=== PATIENT | female | born 1950 | race Caucasian/White ===

== ENCOUNTER 2016-10-12 17:14 | Emergency (ER) | payer MEDICARE, OTHER ==
[2016-10-12] MEDS ORDERED: oxyCOD/ACETAMIN 5 MG/325 MG TABLET PO STA (17:48)
[2016-10-12] MEDS ORDERED: oxyCOD/ACETAMIN 5 MG/325 MG TABLET PO ONE (18:03)
[2016-10-12] MEDS ORDERED: oxyCODONE/ACET 5/325 Prepack 4 PO STA (20:21)
[2016-10-12] MEDS ORDERED: oxyCODONE/ACET 5/325 Prepack 4 PO ONE (20:24)
== END 2016-10-12 20:55 | disposition home or self-care (01) ==
DX: S42.212A Unspecified displaced fracture of surgical neck of left humerus, initial encounter for closed fracture (principal); S50.02XA Contusion of left elbow, initial encounter; S80.212A Abrasion, left knee, initial encounter; W01.0XXA Fall on same level from slipping, tripping and stumbling without subsequent striking against object, initial encounter; E11.9 Type 2 diabetes mellitus without complications; Z87.442 Personal history of urinary calculi; Z79.84 Long term (current) use of oral hypoglycemic drugs
CPT/HCPCS: 73060; 73080; 99283; A9270

== ENCOUNTER 2018-10-31 13:36 | Outpatient (CLI) | payer MEDICARE | END 2018-10-31 13:37 | disposition home or self-care (01) | LOC: DI 13:36 | PROVIDERS: ATTEND Internal Medicine | DX: R06.02 Shortness of breath (principal); I51.7 Cardiomegaly | CPT/HCPCS: 93306 ==

== ENCOUNTER 2019-05-13 11:58 | Outpatient (CLI) | payer MEDICARE ==
--- NOTE | 2019-05-13 13:30 | CONSULTATION NOTE ---
Palliative Care Consultation - Referral Referring Provider: Dr. Regino Pretty Time of Visit: 3959-7451 Referral setting: Home Referral Reason: Stage IV Colon Cancer with peritoneal carcinomatosis - Information Sources Records reviewed: Previous records reviewed History/Review of Systems obtained from: Patient, Family ( Dominic and Zina stepdaughter) Exam limitations: No limitations - History of Present Illness Brief History of Present Illness: This is a 68-year-old woman with stage IV colon cancer, with extensive peritoneal carcinomatosis. Her initial diagnosis was in January of this year. Patient had been feeling poorly for several months previously, with increased abdominal discomfort, nausea, she had been vomiting up clear liquid, and not food contents. She did have vague left abdominal pain. She did continue to develop more more distention, as she was having accumulating ascites. She has had a total of 4 paracentesis of fairly large volume, was last tapped in February. Of note she also had almost 2 years of diarrhea previous to diagnosis, and with firming of stool when received chemotherpy, some rectal pain, now resolved, known tumor at rectum. She was seen by gastroenterology, and referred for diagnostic/therapeutic paracentesis at that point in time the ascetic fluid confirmed malignant cells, and her CT scan of the abdomen pelvis also showed soft tissue implants and indeterminate hepatic and splenic lesions in her work up. She is due to have restaging scans this next month. Patient was started on FOLFOX and Avastin, she actually has tolerated it fairly well. She is having a good therapeutic response and well her CEA has decreased to 68. She is seeing Dr. Pretty, and receiving her treatments every 2 weeks with a plan for 12-15 treatments. She does have progressive fatigue and some increase in neuropathies. She did have a baseline some diabetic neuropathy in her feet, but most recently has developed neuropathies in her fingers. This does appear to be worsening, and of concern. Patient also has known concern for obstruction given the location of her tumor. She has been managing her bowels with MiraLAX and senna 2 tabs at bedtime. She has had some resolution of her nausea, use of the metoclopramide 5 mg up to 3 times a day, this is most often in conjunction w ith her therapy has not needed it on a regular basis. Her symptom burden includes anorexia, which she has been using CBD, with some improvement. She has had significant weight loss of about 80 pounds over the last 6 to 8 months. Patient's understanding of her disease, is she is "terminal", the goal is to manage her disease and extend her quantity as well as improve her quality of life. She does present with moderate symptom burden, she has good social support network, and willing and able to talk about her goals of care today. 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 Her has health challenges as well with his heart and pulmonary hypertension. Her stepdaughter Zina and her have moved in to help with her care, she is quite appreciative this. 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 Patient himself is from [place], she her who is in the , they moved from [place] to [place] and then to [facility] on snf. 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 She admits to being somewhat of an introvert, she likes to sit in a recliner, she finds ila in comfort and watching TV and reading. Family History - Family History Family History: Mother: (natural causes 76), Cancer (lung 63,), Father: , Brother: Alive and Well (brother with kidney cancer), CVA/TIA Family History Comment/Other: paternal grandfather with rectal cancer Medications/Allergies - Medications Home Medications: Ambulatory Orders Medication Instructions Recorded Confirmed Glipizide [Glipizide Xl] 1 tab PO DAILY PRN 10/12/16 05/13/19 metFORMIN [Glucophage] 1,000 mg PO BID 10/12/16 05/13/19 Fluticasone [Flonase] 1 sprays TONJA DAILY 04/07/19 05/13/19 Furosemide [Lasix] 20 mg PO BID 04/07/19 05/13/19 Gabapentin [Neurontin] 600 mg PO HS 04/07/19 05/13/19 Ipratropium [Atrovent] 2 sprays IN BID PRN MDD up to 4 04/07/19 05/13/19 times daily Ondansetron [Ondansetron Odt] 8 mg PO Q8HR PRN 04/07/19 05/13/19 Spironolactone 25 mg PO BID 04/07/19 05/13/19 Metoclopramide [Reglan] 5 mg PO TID PRN 04/21/19 05/13/19 Omeprazole 40 mg PO DAILY 04/21/19 05/13/19 Polyethylene Glycol 3350 [Miralax] 17 gm PO DAILY 05/13/19 05/13/19 Senna [Senokot] 2 tab PO ACHS 05/13/19 05/13/19 - Allergies Allergies/Adverse Reactions: Allergies Allergy/AdvReac Type Severity Reaction Status Date / Time No Known Drug Allergies Allergy Verified 05/05/19 09:49 Review of Systems - Constitutional Constitutional: reports: Fatigue, Weight loss (294 baseline now 219: 80 pound weight loss over the year). denies: Fever, Chills - Eyes Eyes: reports: Vision loss - Ears, Nose & Throat Ears, Nose & Throat: reports: Postnasal drainage (improved). denies: Mouth lesions - Cardiovascular Cardiovascular: reports: Decr. exercise tolerance. denies: Edema - Respiratory Respiratory: denies: SOB at rest - Gastrointestinal Gastrointestinal: reports: Abdominal distention, Poor appetite (using CBD with some improvement), Early satiety. denies: Abdominal pain, Constipation, Nausea, Vomiting, Reflux/heartburn - Genitourinary Genitourinary: denies: Incontinence - Musculoskeletal Musculoskeletal: reports: Muscle weakness - Integumentary Integumentary: reports: Dryness, Other (peeling of hands) - Neurological Neurological: reports: General weakness, Abnormal gait - Psychiatric Psychiatric: reports: Depression, Anxiety - Endocrine Endocrine: reports: Diabetes type 2 (uses her glipizide PRN, usually only needs on day of decadron), Intolerance to cold - Hematologic/Lymphatic Hematologic/Lymphatic: reports: Anemia (worsening; hgb 11.6) - All Other Systems All Other Systems: reports: Reviewed and negative Physical Exam - Vital Signs Temperature: 96.4 C Pulse Rate: 62 Respiratory Rate: 18 O2 Saturation: 96 (ra @ rest) Blood Pressure: 132/78 - Physical Exam General Appearance: positive: No acute distress, Alert Eyes Bilateral: positive: Normal inspection ENT: positive: No signs of dehydration. negative: Oral lesions Neck: positive: No JVD, Trachea midline Cardiovascular: positive: Regular rate & rhythm Respiratory: positive: Diminished in bases (right greater than left). negative: Wheezes, Rales, Rhonchi Abdomen: positive: Non-tender, Soft, Nml bowel sounds, Mass (palpaple tumor over mid upper abdominal area of carcinomatosis), Obese Skin: positive: Pallor, Dryness (peeling finger tips: slighly reddened) Extremities: positive: No pedal edema Neurologic/Psychiatric: positive: Oriented x3, Mood/affect nml (appropriately tearful), Weakness Palliative Care - POLST Patient has POLST: Yes POLST Status: DNR, Selective Treatment (completed at visit) Pain: Pain improved, Location (LUQ), Severity (2/10), Comment (patient with worsening peripheral neuropathy in feet, now in hands on gabapentin 600 mg at HS; and ibuprofen 800 mg at bedtime) Tiredness/Fatigue: Moderate (4-6) Drowsiness/Sedation: Moderate (4-6) Nausea: None Anorexia: None Dyspnea: None Depression: Mild (1-3) Anxiety: Mild (1-3) Feelings of wellbeing/Perceived Quality of Life: Fair, Improved Sleep: Sleeps well Constipation: No, Managed Performance Status: Patient's energy does fluctuate, she does report she is able to ambulate short distances most days. She does have a walker, she does have a wheelchair for times when she is too fatigued. She is attending to her ADLs, she does have assistance from her stepdaughter. She at baseline has always been quite deconditioned, with her weight loss of muscle mass, she is much weaker. She reports she often lists to the right. 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 Allowed patient to tell her story, she does have understanding her disease is terminal and her treatment palliative in nature. She is hoping for both quality and quantity of time, she has had improvement in her symptoms and is quite encouraged. She has tolerated her chemo fairly well, but is worried about the what next. As a family they have talked and discussed the POLST form, this was revisited, in the context of patient's goals. Patient at this point in time wants to focus on quality of life issues, would treat reversible conditions and continue with treatment at this point, and end-of-life she would like to have a at home. We discussed in the context of the POLST. She does want to be a DNA R, allow natural , and select treatments weighing benefits and burdens of treatment decisions as they come up. Her D ABRAHAN is her , with Zina in follow-up in her niece. I did obtain that document to scanned into medical records as well as completed the POLST. Patient presents appropriately tearful, does admit to some persistent grief and loss and depressive symptoms, did invite her to participate, he is quite watchful and supportive of his . Visit was also concentrated on building rapport. Results - Lab Results Lab results reviewed: Yes Impression and Recommendations - Palliative Care Impression: This is a 68-year-old woman with stage IV colon cancer, with high risk of obstruction symptoms, peritoneal carcinomatosis, as well as liver mets. She does present with moderate symptom burden, of fatigue, depression, and some functional decline. Patient's goals include focus on quality of life, and hoping for extended quantity of life though realistic about the palliative intent of her treatment. Palliative care to continue to provide support for pain and symptom management and anticipatory guidance. Recommendations/Counseling Done: 1. Peripheral neuropathy, worsened by oxaliplatin. Patient does present with abnormal gait, worsening peripheral neuropathy in her feet, and now with peripheral neuropathy in her hands. She is currently on gabapentin 600 mg at bedtime, we did discuss possibly titrating this up if it were to be more persistent and more painful. 2. Palmar erythrodysethesia secondary to chemotherapy. Patient does have dry peeling fingertips, instructed on heavy lubricant twice daily, as well this using gloves to help with absorption. 3. Left hip pain. Patient using ibuprofen 800 mg at bedtime for generalized discomfort, recommend considering decreasing dosing related to her creatinine of 1.2, could consider titrating other medications other than NSAIDs to address discomfort introduced. 4. Constipation. Patient is managing her bowels with MiraLAX daily and senna 2 tabs at bedtime. Counseling provided regarding bowel program, titration of MiraLAX for softening, and senna for more frequent bowel movements. Patient is titrating appropriately. 5. Stage IV metastatic colon cancer with peritoneal carcinomatosis. Patient with known recurrent abdominal ascites, currently controlled with her Spironolactone/Lasix. She has not needed any recent paracentesis, will continue to monitor. Patient is due for follow-up CT scan this Sunday, to monitor response to treatment. Patient has tolerated treatment fairly well with now developing some peripheral neuropathy toxicity related to oxaliplatin, and some skin changes with 5-FU. 6. Generalized weakness. Patient at baseline is quite deconditioned, she has had loss of muscle mass. Counseling provided to include progressive ambulation, and minor exercises for strengthening upper extremities. Approached by ways that she could integrate increasing her activity in her daily routine. Counseling provided for rationale particularly in patients who are receiving chemotherapy. 7. Depression. Patient does present with symptoms of persistent sadness, she is tearful appropriately through interview. Patient is at baseline and introvert, did discuss suggestions as far decreasing isolation, patient does identify activities that bring her comfort. We will continue to monitor, can offer in the future social service agency director and/or event planning manager as well as consider pharmacologic treatment if indicated. 8. Advanced care planning. Family conference regarding patient's goals of care, addressed questions as far as uncertainty and anticipatory guidance, completed POLST and definition of goals. Obtain copy of D POA for medical records. Time Spent: 75 minutes was given 50% of it spent in counseling and coordination of care related to pain and symptom management, advanced care planning, and anticipatory guidance.
== END 2019-05-13 11:59 | disposition home or self-care (01) ==
LOC: PC 11:58
PROVIDERS: ATTEND Nurse Practitioner Adult Health
DX: Z51.5 Encounter for palliative care (principal); G62.0 Drug-induced polyneuropathy; L27.1 Localized skin eruption due to drugs and medicaments taken internally; T45.1X5A Adverse effect of antineoplastic and immunosuppressive drugs, initial encounter; Y92.009 Unspecified place in unspecified non-institutional (private) residence as the place of occurrence of the external cause; C19 Malignant neoplasm of rectosigmoid junction; C78.6 Secondary malignant neoplasm of retroperitoneum and peritoneum; R18.0 Malignant ascites; Z79.899 Other long term (current) drug therapy; E11.42 Type 2 diabetes mellitus with diabetic polyneuropathy; Z79.84 Long term (current) use of oral hypoglycemic drugs; D64.9 Anemia, unspecified; Z66 Do not resuscitate; Z79.1 Long term (current) use of non-steroidal anti-inflammatories (NSAID); Z99.3 Dependence on wheelchair; C78.7 Secondary malignant neoplasm of liver and intrahepatic bile duct; F32.9 Major depressive disorder, single episode, unspecified; M25.552 Pain in left hip
CPT/HCPCS: 99345

== ENCOUNTER 2019-06-02 09:55 | Outpatient (CLI) | payer MEDICARE ==
--- NOTE | 2019-06-02 13:43 | CONSULTATION NOTE ---
Palliative Care Follow Up - Referral Referring Provider: Dr. Regino Pretty Time of Visit: [id number] Referral setting: [facility] [place] Referral Reason: Fatigue/Left hip pain/Weakness - Information Sources Records reviewed: Previous records reviewed History/Review of Systems obtained from: Patient, Family ( and daughter present for visit) Exam limitations: No limitations - History of Present Illness Update Brief HPI Update: This is a 68-year-old woman with stage IV colon cancer, multifocal in the colon with peritoneal carcinomatosis and resolving ascites. She was diagnosed in 01/2019. She is currently receiving FOLFOX plus Avastin, #8 today, she is getting this every 2 weeks with the goal to complete 12 cycles followed by maintenance therapy. She does appear to be getting a good response, her abdomen is much softer, no fluid wave today, she is obese. Remarkable, I cannot feel any of the omental caking, as far as rigidity with last visit. She does not have any pain or tenderness with this. Patient's CT scan she had on showed no pulmonary nodules pleural effusions and less conspicuous thyroid nodules compared to previously. Her CT of abdomen pelvis showed again marked infiltration of omentum compatible with tumor caking, significant reduction in previously noted abdominal and pelvic ascites, soft tissue mass involving left pelvic sidewall, and low attenuating lesions in liver and spleen are stable. Her bowels are moving she is had no nausea or vomiting. Does describe progressive fatigue, with each treatment feeling a little bit more tired, sleeping a little bit harder, she does still present with generalized muscle weakness, in particular her concern is her right shoulder. She does attribute the pain related to a flu shot, though does present more with limited range of motion, and needing assist for overhead extension, but is doing her daily weights. She has been trying to add some progressive ambulation, though by her admission, she is at baseline appears that he does not do a significant amount of exercise. Her family does express concern, though that she remain functional, patient has had 1 fall or "slide", she would benefit from some strengthening and further directed exercise program. Left hip pain, this is attributed to severe DJD, she had been asked to decrease her use of ibuprofen secondary to her kidney function. Unfortunately this is exacerbated her pain, and made it less active. She does get relief with laying down flat, increased pain with movement and weightbearing. She did use 600 mg of ibuprofen yesterday with some relief. She also describes bilateral peripheral neuropathy, denies significant pain, but does describe numbness which has increased or worsened over time, she "feels they are not her feet". I suspect this is adding to her balance issues. Patient does present with weight loss of 6 pounds, patient's abdomen is much softer, should her labs do reflect possibly needing to decrease her diuretics. She has not needed further paracentesis, and does not present with fluid wave, or distention today. Patient at baseline has somewhat of a flat affect, she does express feelings of fatigue and somewhat overwhelmed. She is willing to meet with our medical palliative care health and social care teacher, both her resources and for counseling for adjus tment illness. Patient is somewhat resistant to medication, will trial counseling versus adding antidepressant at this point in time. Social History - Living Situation Living arrangement: At home Living Situation: With spouse/s.o., With family Support System: Patient lives at home with her Dominic, they have been for 33 years. He has healthcare challenges as well, but her stepdaughter She and her have moved in to help with her care. She is expecting company over the next couple weeks with the holidays, she is looking forward to this.Zina is trained as a HOUSE ADMIN, and can help her with bathing, and has been helping oversee and advocating for her healthcare needs. Medications/Allergies - Medications Home Medications: Ambulatory Orders Medication Instructions Recorded Confirmed Glipizide [Glipizide Xl] 1 tab PO DAILY PRN 10/12/16 06/02/19 metFORMIN [Glucophage] 1,000 mg PO BID 10/12/16 06/02/19 Fluticasone [Flonase] 1 sprays TONJA DAILY 04/07/19 06/02/19 Furosemide [Lasix] 20 mg PO DAILY MDD 2nd dose prn 04/07/19 06/02/19 Gabapentin [Neurontin] 600 mg PO HS 04/07/19 06/02/19 Ipratropium [Atrovent] 2 sprays IN BID PRN MDD up to 4 04/07/19 06/02/19 times daily Ondansetron [Ondansetron Odt] 8 mg PO Q8HR PRN 04/07/19 06/02/19 Spironolactone 25 mg PO DAILY MDD 2nd dose prn 04/07/19 06/02/19 Metoclopramide [Reglan] 5 mg PO TID PRN 04/21/19 06/02/19 Omeprazole 40 mg PO DAILY 04/21/19 06/02/19 Polyethylene Glycol 3350 [Miralax] 17 gm PO DAILY PRN 05/13/19 06/02/19 Senna [Senokot] 2 tab PO ACHS 05/13/19 06/02/19 Ibuprofen 600 mg PO Q8HR PRN 06/02/19 06/02/19 - Allergies Allergies/Adverse Reactions: Allergies Allergy/AdvReac Type Severity Reaction Status Date / Time No Known Drug Allergies Allergy Verified 05/19/19 10:38 Review of Systems - Constitutional Constitutional: reports: Fatigue (worsening; more time in chair and sleeping), Weakness, Weight loss (211). denies: Fever, Chills - Eyes Eyes: reports: Vision loss - Ears, Nose & Throat Ears, Nose & Throat: reports: Nasal congestion, Dry mouth - Cardiovascular Cardiovascular: reports: Lightheadedness, Decr. exercise tolerance. denies: Edema - Respiratory Respiratory: reports: SOB with exertion - Gastrointestinal Gastrointestinal: reports: Abdominal distention, Constipation (managing bowels with alternating senna and miralax), Good appetite. denies: Nausea - Genitourinary Genitourinary: reports: Frequency, Urgency, Incontinence (with diuretics; worse at night) - Musculoskeletal Musculoskeletal: reports: Stiffness, Limited range of motion (right shoulder), Muscle weakness, Joint pain (left hip; worse with standing; better with laying; relieved with intermittent ibuprofen), Assistive devices (walker) - Integumentary Integumentary: reports: Dryness, Other (peeling hands and feet; right hand > left ; left foot with large area of denuding over ball of foot) - Neurological Neurological: reports: General weakness, Memory problems (noting some STM issues; word finding) - Psychiatric Psychiatric: reports: Depression. denies: Anxiety - Endocrine Endocrine: reports: Diabetes type 2 - Hematologic/Lymphatic Hematologic/Lymphatic: reports: Anemia - All Other Systems All Other Systems: reports: Reviewed and negative Physical Exam - Vital Signs Temperature: 36.5 C Pulse Rate: 68 Respiratory Rate: 18 Blood Pressure: 120/81 - Physical Exam General Appearance: positive: Alert, Mild distress Eyes Bilateral: positive: Normal inspection ENT: positive: No signs of dehydration, Other (white coating on tongue; moist membranes; no s/s mucousitis or white "patches" bucally). negative: Pharyngeal erythema Neck: positive: Trachea midline Cardiovascular: positive: Regular rate & rhythm Respiratory: positive: No respiratory distress Abdomen: positive: Non-tender, Soft, Mass (softer; ridge could palpate earlier visit improved; abd. soft no fluid wave;), Obese Skin: positive: Pallor, Dryness (right foot with peeling/cracking; psorasis like rash on ankle/calf; left foot with large area of new skin ; callous peeled;) Extremities: positive: No pedal edema. negative: Full ROM (right shoulder with limited range of motion; needs assist for active ROM) Neurologic/Psychiatric: positive: Oriented x3, Mood/affect nml, Weakness, Flat affect Palliative Care - POLST Patient has POLST: Yes POLST Status: DNR, Selective Treatment Pain: Pain worsening, Location (left hip; had decreased ibuprofen as inst. related to concerns of labs/kidney function; less able to be active; remain with creat 1.1; suspect dehydration as well; Inst. can take, just not scheduled will consider Meloxicam if kidney function improves;) Tiredness/Fatigue: Moderate (4-6) (worsening with each treatment) Drowsiness/Sedation: Moderate (4-6), Comment (daughter reports sleeping mores soundly) Nausea: None Anorexia: Mild (1-3), Weight loss (6 pounds though feels is eating better; could be fluid as is quite dry today) Dyspnea: None Depression: Mild (1-3) Anxiety: Mild (1-3) Feelings of wellbeing/Perceived Quality of Life: Fair, Acceptable, No change Sleep: Sleeps well Constipation: Yes, Managed Performance Status: Patient does express progressive fatigue, she is able to ambulate short distances on most days. She does have a walker which she uses most of the time, does have a wheelchair if she is too fatigued. She is excepting assistance from her stepdaughter for bathing if needed. Her gait is of wide stance, rocking in character, note put her at a PPS of 60% - Palliative Care Discussion: Patient is quite pragmatic in her approach. She is starting to feel some fatigue with treatment and looking forward to a break. She does have a POLST in place that we completed last visit, patient's a is down to 40, she is improving and responding to the treatment. She is looking forward to time with her family, and presents with no acute concerns though does admit to feeling overwhelmed at times. Results - Lab Results Lab results reviewed: Yes Impression and Recommendations - Palliative Care Impression: This is a 68-year-old woman with stage IV colon cancer, with peritoneal carcinomatosis, liver mets, and high risk of obstruction. She does present with improvement of ascites in her belly, less firmness and rigidity in her abdomen on palpation of her mass, she does have progressive fatigue and does seem cumulative with each treatment. She has had some functional decline, and would benefit from therapy, she does agree to this at this time. Palliative care to continue provide support for pain and symptom management and anticipatory guidance. Recommendations/Counseling Done: 1. Peripheral neuropathy, worsened by oxaliplatin. Patient describes her pain in her feet, on the edge of increased tingling. She is currently on gabapentin 600 mg at at bedtime, will continue to monitor, may benefit from increased dosing. Would like to hold off, given her level of fatigue, but is an option. 2. 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 This does appear to be progressive, did have a significant peeling on her left foot, she had been instructed to start with heavy lubricant twice daily on her hands. She is quite resistant to ointment. This was reviewed yet again with her, particularly in the context of denuded skin. She has been instructed to apply ointment based lubricant, protect her feet either with socks in her shoes, or wear her slipper s. She has been instructed not to go barefoot and to continue to monitor. 3. Left hip pain. Patient has decreased her use of ibuprofen, but her left pain exacerbated, she did use 600 mg yesterday with relief. Her creatinine remains at 1.1, will continue to evaluate if improves with decrease of diuretic, May institute meloxicam if improved, or consider low-dose opioids to address discomfort. 4. Constipation. Patient is managing her bowels with MiraLAX as needed, and senna 2 tabs every other day. Patient does appear to be titrated appropriately, encouraged to set goal of more frequency. 5. Stage IV metastatic colon cancer with peritoneal carcinomatosis. Patient with known recurrent abdominal ascites, currently appears to be controlled, but also concern regarding dehydration. Patient has had some lightheadedness on standing, and complains of dry mouth. Her labs also suggest some dehydration. Instructed to decrease her Spironolactone 25 mg/furosemide 20 mg twice daily to daily. Because of her risk for reaccumulation, she has been instructed to weigh daily, and if 3 pound weight gain to take second dose. 6. Generalized weakness patient at baseline is quite can deconditioned, has had lots of muscle mass loss with her weight. She has been trying to include some increased steps in her ambulation, using some weights for minor exercises for strengthening of upper extremities. She is willing at her family's urging, at this point and consider PT/OT. Will do [id number] today for this. And obtained order from Dr. gamble. Counseling provided regarding need to focus on strengthening in the face of her current treatment regimen, to be maintained independence. 7. Depression. Patient does have symptoms of persistent sadness, she is at baseline and introvert. They have tried to get her out but with her increasing fatigue this is more difficult. She is willing to see the health and social care teacher, will make a referral. Declined firewall engineer at this point in time. Can consider pharmacologic treatment in the future. [id number]. It is a taxing considerable effort for the patient leave the home, would recommend physical therapy, for home exercise program, progressive ambulation, equipment and safety recommendations. OT for right shoulder exercises, pain management and assistance with ADL management. 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 Time Spent: 30 minutes with greater than 50% of this done in counseling regarding symptom management and coordination of care with oncology team.
== END 2019-06-02 09:56 | disposition home or self-care (01) ==
LOC: PC 09:55
PROVIDERS: ATTEND Nurse Practitioner Adult Health
DX: Z51.5 Encounter for palliative care (principal); M16.12 Unilateral primary osteoarthritis, left hip; G62.9 Polyneuropathy, unspecified; L27.1 Localized skin eruption due to drugs and medicaments taken internally; T45.1X5A Adverse effect of antineoplastic and immunosuppressive drugs, initial encounter; R53.0 Neoplastic (malignant) related fatigue; K59.00 Constipation, unspecified; R53.1 Weakness; F32.9 Major depressive disorder, single episode, unspecified; C18.9 Malignant neoplasm of colon, unspecified; C78.6 Secondary malignant neoplasm of retroperitoneum and peritoneum; R18.8 Other ascites; C78.7 Secondary malignant neoplasm of liver and intrahepatic bile duct; Z79.899 Other long term (current) drug therapy; Z66 Do not resuscitate
CPT/HCPCS: 99214

== ENCOUNTER 2019-06-24 13:38 | Outpatient (CLI) | payer MEDICARE ==
[2019-06-24] MEDS ORDERED: GADOBUTROL 10 MMOL/10 ML VIAL ONE (15:19)
[2019-06-24] MEDS ORDERED: GADOBUTROL 10 MMOL/10 ML VIAL IVP ONE (16:05)
--- NOTE | 2019-06-24 18:11 | MRI Report ---
Reason: COLON CANCER Procedure Date: 06/24/2019 Accession Number: [id number] / [id number] Procedure: MRI - Brain W/WO CPT Code: Final Report FULL RESULT: EXAM: MRI BRAIN WITHOUT AND WITH CONTRAST EXAM DATE: 06/24/2019 04:17 PM. 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 COLON CANCER. COMPARISON: None. TECHNIQUE: Multiplanar, multisequence T1-weighted and fluid-sensitive MR sequences of the brain were performed before and after administration of intravenous contrast. Sequences optimized for routine evaluation. Other: None. IV Contrast: 9 ML Gadavist. FINDINGS: Brain Volume: Normal for age. Parenchyma: No acute hemorrhage, mass, or infarct. No white matter lesions identified. No abnormal enhancement. Ventricles/Cisterns: No hydrocephalus. No abnormal extra-axial fluid collection or hemorrhage. Orbits: Symmetric and unremarkable. Sella Turcica: The pituitary gland, cavernous sinuses, suprasellar cistern and optic chiasm are unremarkable. IAC: Symmetric and unremarkable. Vasculature: Normal signal flow void is seen in the major arterial structures at the skull base. The dural sinuses are patent and enhance normally. Sinuses: No acute sinus disease. Bones: No focal pathologic appearing marrow signal changes. Other: None. IMPRESSION: 1. No MRI evidence of intracranial metastatic disease. 2. No MRI evidence of acute intracranial abnormality. Specifically, no evidence of acute or subacute infarct, acute intracranial hemorrhage, mass, midline shift, or hydrocephalus. [facility]
== END 2019-06-24 13:39 | disposition home or self-care (01) ==
LOC: DI 13:38
PROVIDERS: ATTEND Internal Medicine Hematology & Oncology
DX: H53.2 Diplopia (principal); C18.9 Malignant neoplasm of colon, unspecified
CPT/HCPCS: 70553; A9585

== ENCOUNTER 2019-08-05 13:00 | Outpatient (CLI) | payer MEDICARE ==
--- NOTE | 2019-08-05 16:36 | CONSULTATION NOTE ---
Palliative Care Follow Up - Referral Referring Provider: Dr. Regino Pretty Time of Visit: 9232-3512 Referral setting: Home Referral Reason: Stage IV Colon cancer with peritoneal carcinomatosis - Information Sources Records reviewed: Previous records reviewed History/Review of Systems obtained from: Patient, Family (daughter, Zina and , Dominic) Exam limitations: No limitations - History of Present Illness Update Brief HPI Update: This is a 69-year-old woman with stage IV colon cancer that is multi focal in t he colon with peritoneal carcinomatosis and malignant ascites. She was diagnosed in January 2019. She is presently on 5-FU and Avastin and has completed 12 cycles. She previously required frequent large volume paracentesis but has not needed this since March 2019. She was on routine spironolactone and furosemide for malignant ascites but this is now presently as needed. Her abdomen appears to be soft with no noted ascites. She had a CT of her abdomen and pelvis performed yesterday, 08/04/2019 at [place] and those results are not present on examination today for restaging. The goal is to begin maintenance therapy with Avastin and Xeloda. She is no longer on oxaloplatin due to double vision. She reports that in the last 6 weeks since discontinuing that medication she has had resolution of her double vision centrally but when she looks to her left and her right that still remains present. She is presently working with home physical therapy for her right shoulder and left hip. She has a history of severe DJD and since working with a physical therapist she has not needed to take any as needed ibuprofen. She also has had reduced range of motion with her right shoulder that she has attributed to an influenza vaccine that was administered. She is working with a small weight and putty with a physical therapist and this has improved. She has noted discomfort to the posterior aspect of her neck with a cyst that has been present for approximately 6 months but is slightly more tender recently. The patient also has noted some discomfort to her coccxyal area and she has been trying to shift her weight more regularly. She has been asked by the physical therapist to make walks around her house, but the patient has not complied stating due to weather. However, she has not been walking within her home. She is also trying to work with her balance getting in and out of her home with the stairs with a physical therapist. She continues to feel fatigued as the day progresses and feels best when she first wakes up. She typically sleeps 10 to 12 hours overnight and then will doze after eating in her reclining chair. Since the discontinuation of the oxaliplatin she feels "less fuzzy" however she has given up managing her checkbook and her family has taken up with that. Social History - Living Situation Living arrangement: At home Living Situation: With spouse/s.o., With family Support System: The patient lives at home with her Dominic, they have been for 33 years. Her also has his own complex health challenges as well. Her stepdaughter, and she and her have relocated to [facility] to assist with the care of her parents. Zina was trained as a PRESS SET UP PERSON. The patient herself reports that she continues to enjoy [place] TV watching that on television are on her iPad. She is quite sedentary. Medications/Allergies - Medications Home Medications: Ambulatory Orders Medication Instructions Recorded Confirmed Glipizide [Glipizide Xl] 1 tab PO DAILY PRN 10/12/16 08/05/19 metFORMIN [Glucophage] 1,000 mg PO DAILY 10/12/16 08/05/19 Fluticasone [Flonase] 1 sprays TONJA DAILY PRN 04/07/19 08/05/19 Furosemide [Lasix] 20 mg PO DAILY PRN 04/07/19 08/05/19 Gabapentin [Neurontin] 600 mg PO HS 04/07/19 08/05/19 Ipratropium [Atrovent] 2 sprays IN BID PRN MDD up to 4 04/07/19 08/05/19 times daily Ondansetron [Ondansetron Odt] 8 mg PO Q8HR PRN 04/07/19 08/05/19 Spironolactone 25 mg PO DAILY PRN 04/07/19 08/05/19 Metoclopramide [Reglan] 5 mg PO TID PRN 04/21/19 08/05/19 Omeprazole 40 mg PO DAILY 04/21/19 08/05/19 Senna [Senokot] 2 tab PO ACHS PRN 05/13/19 08/05/19 polyethylene glycoL 3350 [Miralax] 17 gm PO DAILY PRN 05/13/19 08/05/19 Ibuprofen 600 mg PO Q8HR PRN 06/02/19 08/05/19 Escitalopram Oxalate [Lexapro] 2.5 mg PO DAILY 08/05/19 08/05/19 Ketoconazole 1 applic TP BID MDD 14 days to 08/05/19 08/05/19 right foot - Allergies Allergies/Adverse Reactions: Allergies Allergy/AdvReac Type Severity Reaction Status Date / Time No Known Drug Allergies Allergy Verified 07/29/19 11:17 Review of Systems - Constitutional Constitutional: reports: Fatigue, Weight gain (weight 218lb, abdomen remains soft and without LE edema). denies: Fever - Eyes Eyes: reports: Dipolpia (noted peripherally 2/2 oxaliplatin that is slowly improving.), Corrective lenses - Ears, Nose & Throat Ears, Nose & Throat: reports: Nasal congestion (intermittent) - Cardiovascular Cardiovascular: denies: Palpitations, Chest pain, Edema - Respiratory Respiratory: denies: Cough, Wheezing - Gastrointestinal Gastrointestinal: reports: Abdominal distention, Early satiety (will eat 1-2 meals a day as she often gets up at 12noon. Reports to "1 good meal a day."). denies: Abdominal pain, Constipation (manages her occasional constipation with miralax or senna), Change in bowel habits, Nausea - Genitourinary Genitourinary: denies: Dysuria - Musculoskeletal Musculoskeletal: reports: Stiffness (right shoulder with stiffness and limited range of motion that has improved working with home PT.), Muscle weakness (generalized), Assistive devices (has a walker that she does not use: requesting wheelchair for use), Other (increased fatigue with ambulation for long distances out of the home) - Integumentary Integumentary: reports: Other (cyst to posterior aspect of neck and scaling along right great toe and along medial aspect of right foot; tenderness to coccyx) - Neurological Neurological: reports: General weakness, Memory problems (some short term memory issues that have improved with discontinuation of oxaliplatin) - Psychiatric Psychiatric: reports: Depression (reports to feeling slightly depressed and not wanting to do things or leave the home) - Endocrine Endocrine: reports: Diabetes type 2 - All Other Systems All Other Systems: reports: Reviewed and negative Physical Exam - Vital Signs Temperature: 36.7 C Pulse Rate: 64 O2 Saturation: 98 (on RA at rest) Blood Pressure: 134/72 (right wrist cuff) - Physical Exam General Appearance: positive: No acute distress, Alert, Other (OOB in recliner) Eyes Bilateral: positive: Normal inspection, Other (+corrective lenses; EOMI) ENT: positive: No signs of dehydration Neck: positive: Thyroid nml, No JVD, Trachea midline Cardiovascular: positive: Regular rate & rhythm, No murmur Respiratory: positive: No respiratory distress, Breath sounds nml Abdomen: positive: Non-tender, Soft, Nml bowel sounds, Mass (palpable to left mid-quandrant, no fluid wave), Obese Skin: positive: Pressure wound (stage 2 pressure ulce appx 0.2cm in size along coccyx closest to right buttock), Other (scaly like plaque to right great toe and along medial aspect of right foot with appearance of tinea pedis; resolution of peeling to bilateral hands and continued noted dryness to bottom of both feets; Epideral cyst to posterior aspect of neck appx 2cm x 3cm in size with trace erythema due to pressure that is blanchable without warmth to palpation or surrouding erythema that is mildly tender that is mostly fluculant.) Extremities: positive: No pedal edema, Other (improved ROM of right shoulder with increased abduction; wide gait stance) Neurologic/Psychiatric: positive: Oriented x3, Weakness, Flat affect Palliative Care - POLST Patient has POLST: Yes POLST Status: DNR, Selective Treatment Pain: Pain unchanged (neuropathy to bilateral hands has resolved but continues to bilateral feet; resolution of left hip pain presently working with home PT and improvement of ROM with right shoulder.) Tiredness/Fatigue: Moderate (4-6) (cummulative effect) Drowsiness/Sedation: Moderate (4-6) (will sleep 10-12 hours nightly and will nap during the day.) Nausea: None Anorexia: Mild (1-3) Dyspnea: None Depression: Mild (1-3) Anxiety: None Feelings of wellbeing/Perceived Quality of Life: Fair, Acceptable Sleep: Sleeps well Constipation: Yes Performance Status: Patient continues to express progressive fatigue that is cumulative. She feels best when she first gets up for the day. She is finding when she is out for long periods of time outside of the home that she is increasingly fatigued after walking. Her family assists with meal prep. Her daughter will assist with bathing if requested. Otherwise the patient is getting by continuing to do most of her ADLs. PPS 60% - Palliative Care Discussion: The patient is quite pragmatic and her approach. She is quite pleased that she has completed her 12 cycles of therapy. She is optimistic that she will be able to be on maintenance therapy as she is "ready for this." She and her family are planning a cruise to [place] on November 27. She is looking forward to meeting families members that she has never met before. She is also looking to obtain a wheelchair to reduce her fatigue. Results - Lab Results Lab results reviewed: Yes Lab and Imaging Results: 07/29/2019: CEA 67.3, CR 0.9, GFR 62, AST 27, ALT 10, Sodium 138, Potassium 3.5, WBC 4.8, H/H 12.3/39.6%, Plt 244. 07/14/2019 CEA 36.9 Impression and Recommendations - Palliative Care Impression: This is a 69-year-old woman with stage IV colon cancer with peritoneal Carrison a ptosis and malignant ascites. She has had improvement of her ascites to her abdomen without firmness or rigidity. She does have progressive fatigue that has been cumulative with each treatment. She had side effects due to Constanza plan and has felt better after that discontinuation. She has had a functional decl ine and is presently working with physical therapy. However, she continues to limit her activity within her home. Palliative care to continue provide support for pain and symptom management and anticipatory guidance. Recommendations/Counseling Done: 1. Epidermal inclusion cyst. No evidence of surrounding cellulitis. As seen in the home setting unable to intervene. Recommend warm compresses to the cyst for 10 minutes 3 times a day for 1 week. Reviewed with patient, spouse, and daughter signs and symptoms of infection such as warmth or spreading redness. Advised to follow-up with PCP if no improvement. 2. Tinea Pedis right foot. Start ketoconazole 2% cream application to affected areas on right foot twice a day for 2 weeks. 3. Pressure Ulcer stage II to coccyx due to debility and obesity. Obtain waffle cushion for her recliner to relieve pressure points. Advised to reposition in her recliner every 15 minutes when up. Encouraged to nap in the bed where she can rest on her side. To use barrier cream such as calamine or Butt paste or Aquaphor to the affected area daily and as needed until healed. 4. Depression. Patient continues to have symptoms of persistent sadness. She at baseline is an introvert. In discussion today is open to pharmacologic intervention to see if this would improve her mood and reduce her feelings of sadness. We will start at a low dose of 2.5 mg of Lexapro daily. Advised patient to call in 2 weeks to check in regarding her mood. If tolerating then will increase to 5 mg daily. Advised patient and family can take up to 2 to 3 weeks for full effect of antidepressant therapy with verbalized understanding. 5. Stage IV colorectal cancer. Last CEA obtained on 07/29 was 67.3. Status post CT scan performed on 08/04 at [place] will obtain. Patient presently scheduled at [facility] on 08/10. To discuss treatment options moving forward. 6. Deconditioning and generalized weakness. Improvements of range of motion to right shoulder with physical therapy. Strongly encouraged to increase her ambulation within the house as well as light weights for strengthening of her upper extremities. Discussed obtainment of a transporter wheelchair that is high grade to accommodate her weight for used for long trips outside of the home as well as further pending trip on a cruise to [place] in November. Time Spent: Total time spent 60 minutes with greater than 50% of this spent in counseling and coordination of care with patient and family (daughter, Zina and spouse Dominic), review symptom management and anticipatory guidance. disclaimer: The chart note was formulated using voice recognition technology and unfortunately sound alike errors may occur.
== END 2019-08-05 13:01 | disposition home or self-care (01) ==
LOC: PC 13:00
PROVIDERS: ATTEND Nurse Practitioner Family
DX: Z51.5 Encounter for palliative care (principal); L89.152 Pressure ulcer of sacral region, stage 2; L72.0 Epidermal cyst; B35.3 Tinea pedis; R53.83 Other fatigue; F32.9 Major depressive disorder, single episode, unspecified; H53.2 Diplopia; R53.1 Weakness; E11.9 Type 2 diabetes mellitus without complications; E66.9 Obesity, unspecified; M19.90 Unspecified osteoarthritis, unspecified site; C78.6 Secondary malignant neoplasm of retroperitoneum and peritoneum; C18.9 Malignant neoplasm of colon, unspecified; R18.0 Malignant ascites; Z79.899 Other long term (current) drug therapy; Z79.84 Long term (current) use of oral hypoglycemic drugs; Z66 Do not resuscitate
CPT/HCPCS: 99350

== ENCOUNTER 2019-08-28 13:00 | Outpatient (CLI) | payer MEDICARE ==
--- NOTE | 2019-08-28 15:34 | CONSULTATION NOTE ---
Palliative Care Follow Up - Referral Referring Provider: Dr. Regino Pretty Time of Visit: [id number] Referral setting: Home - Information Sources History/Review of Systems obtained from: Patient, Family (daughter, Zina and spouse, Dominic) Exam limitations: No limitations - History of Present Illness Update Brief HPI Update: This is a 69-year-old woman with stage IV colon cancer that is multifocal in the colon with peritoneal carcinomatosis and malignant ascites. She was diagnosed in January 2019. She was started on FOLFOX/Avastin chemotherapy in February 2019. Since discontinuation of oxaloplatin, she no longer has double vision centrally. She did notice double vision yesterday but this has resolved centrally. She then was initiated on a maintenance infusion of 5FU and Avastin which was stopped in July 2019. She has subsequently transitioned to maintenance Xeloda and Avastin which started on 08/25/2019. She previously required large-volume paracentesis but this not has not been required since March 2019. She has as needed spironolactone and furosemide for malignant ascites. The patient weighs herself routinely at home and reports her weight has decreased and is subsequently at approximately [address] of the abdomen was performed on 08/04/2019 demonstrated stable disease. However, her CEA is rising her CEA when 08/24 was 167.5 (prior was 97.41 08/11/2019. ( The patient reports that after starting the new chemotherapy regimen she felt woozy "" yesterday and feels like how she did at the initial onset of FOLFOX. She was hoping to have a reduction in side effects with oral treatment. Today she is feeling better. Overall she felt yesterday like she had no energy. The patient had developed a cyst at the posterior aspect of her neck that had been present for approximately 6 months that then became inflamed. She was treated with Keflex orally and the site started to drain on its own. She was seen by a surgeon at [facility] who removed additional debris and her daughter has been packing the wound. She has a follow-up appointment today. She reports that the site is feeling better. On last visit on 08/05/2019 with this ANALYTICAL MANAGER the patient was initiated on Lexapro 2.5 mg. This was initiated at the same time when she had developed inflammation to the cyst to the posterior aspect of her neck. At the time she felt "off" and not quite herself and discontinued the medication after only a handful of days. She reports that her mood is stable she has not noticed a change but would be open to re-trying the medication in the future. The patient has not had any diarrhea since initiating the Xeldo and Avastin combo and reports to some constipation. She has MiraLAX and senna that she uses to manage her bowels. She took 2 senna the previous night and was able to defecate yesterday and today. She reports to some discomfort during defecation. She also reports that her appetite is stable. She does not notice any increased girth to her abdomen. Patient has a past medical history of osteoarthritis, type 2 diabetes, colon cancer, GERD, kidney stones, peripheral neuropathy. Social History - Living Situation Living arrangement: At home Living Situation: With spouse/s.o., With family (daughter, Zina who is a TIME STUDY TECHNICIAN) Support System: The patient lives at home with her Dominic, they have been for 33 years. Her also has his own complex health challenges as well and wishes to assist the patient in any way that he can. The patient jackieughter, who was trained as a TIME STUDY TECHNICIAN has recall catered to [facility] at the present time to assist with the care of her parents. The patient herself continues to enjoy watching Hebrew TV on her television or on her iPad. She is quite sedentary and has proclaimed herself a couch potato. Medications/Allergies - Medications Home Medications: Ambulatory Orders Medication Instructions Recorded Confirmed Glipizide [Glipizide Xl] 1 tab PO DAILY PRN 10/12/16 08/28/19 metFORMIN [Glucophage] 1,000 mg PO DAILY 10/12/16 08/28/19 Fluticasone [Flonase] 1 sprays TONJA DAILY PRN 04/07/19 08/28/19 Furosemide [Lasix] 20 mg PO DAILY PRN 04/07/19 08/28/19 Gabapentin [Neurontin] 600 mg PO HS 04/07/19 08/28/19 Ipratropium [Atrovent] 2 sprays IN BID PRN MDD up to 4 04/07/19 08/28/19 times daily Ondansetron [Ondansetron Odt] 8 mg PO Q8HR PRN 04/07/19 08/28/19 Spironolactone 25 mg PO DAILY PRN 04/07/19 08/28/19 Metoclopramide [Reglan] 5 mg PO TID PRN 04/21/19 08/28/19 Omeprazole 40 mg PO DAILY 04/21/19 08/28/19 Senna [Senokot] 2 tab PO ACHS PRN 05/13/19 08/28/19 polyethylene glycoL 3350 [Miralax] 17 gm PO DAILY PRN 05/13/19 08/28/19 Ibuprofen 600 mg PO Q8HR PRN 06/02/19 08/28/19 Ketoconazole 1 applic TP BID MDD 14 days to 08/05/19 08/28/19 right foot Sertraline [Zoloft] 2.5 mg PO DAILY 08/11/19 08/28/19 Capecitabine [Xeloda] 2,000 mg PO BID MDD x14 days then 08/28/19 08/28/19 1 week off - Allergies Allergies/Adverse Reactions: Allergies Allergy/AdvReac Type Severity Reaction Status Date / Time No Known Drug Allergies Allergy Verified 08/25/19 09:18 Review of Systems - Constitutional Constitutional: reports: Fatigue, Weight loss (present weight 214lb; 294lb is baseline). denies: Fever, Chills - Eyes Eyes: reports: Dipolpia (intermittent; improved after discontinuation of oxaloplatin) - Ears, Nose & Throat Ears, Nose & Throat: denies: Nasal congestion - Cardiovascular Cardiovascular: denies: Palpitations, Chest pain, Edema - Respiratory Respiratory: denies: Cough, Wheezing - Gastrointestinal Gastrointestinal: reports: Constipation. denies: Abdominal pain, Diarrhea, Nausea, Vomiting, Bloating - Genitourinary Genitourinary: denies: Dysuria, Incontinence - Musculoskeletal Musculoskeletal: reports: Stiffness (right shoulder that has improved), Muscle weakness, Assistive devices - Integumentary Integumentary: reports: Dryness, Other (resolving cyst to posterior aspect of neck) - Neurological Neurological: reports: General weakness - Psychiatric Psychiatric: reports: Depression - Endocrine Endocrine: reports: Diabetes type 2, Intolerance to cold - Hematologic/Lymphatic Hematologic/Lymphatic: denies: Recurrent infections - All Other Systems All Other Systems: reports: Reviewed and negative Physical Exam - Vital Signs Temperature: 36.7 C Pulse Rate: 65 O2 Saturation: 98 (on RA at rest) Blood Pressure: 115/67 - Physical Exam General Appearance: positive: No acute distress, Alert Eyes Bilateral: positive: Normal inspection, Other (+corrective lenses) ENT: positive: No signs of dehydration Neck: positive: Trachea midline Cardiovascular: positive: Regular rate & rhythm, No murmur Respiratory: positive: No respiratory distress, Breath sounds nml. negative: Diminished in bases Abdomen: positive: Non-tender, Soft, Nml bowel sounds, Obese, Other (palpable mass over left upper abdomen due to carcinoatosis). negative: Guarding Skin: positive: Dryness (to bilateral feet with no peeling noted), Pressure wound (right buttock, resolving with no erythema and evidence of epidermal layer of skin forming with no surrounding erythema.) Extremities: positive: No pedal edema, Other (improved ROM to right shoulder; broad base gait with ambulation without assistive device) Neurologic/Psychiatric: positive: Oriented x3, Mood/affect nml Palliative Care - POLST Patient has POLST: Yes POLST Status: DNR, Selective Treatment Pain: Pain unchanged (neuropathy to bilateral hands and feet; left hip pain due to OA that improves for a week at at time after working with physical therapy at home.) Tiredness/Fatigue: Moderate (4-6) (cummulative effect) Drowsiness/Sedation: Moderate (4-6) Nausea: None Anorexia: None Dyspnea: None Depression: Mild (1-3) (stopped taking lexapro after a few days) Anxiety: None Feelings of wellbeing/Perceived Quality of Life: Fair, Acceptable Constipation: Yes, Managed Performance Status: The patient continues to have progressive fatigue that is cumulative. After initiation of new maintenance Xeloda/Avastin this week she noticed increased fatigue that has improved today likely due to side effect of the medication. She continues to work physical therapy and has a pedal machine to use to work with her upper body as well as her lower body. She reports that she has been using this on a daily basis. Her family continues to assist with meal prep. Her daughter will assist with bathing if requested. The patient is overall continues to do most of her ADLs. No recent falls. She will use a cane or walker intermittently if needed. PPS 60%. - Palliative Care Discussion: Today the patient reports that she has underlying concerns regarding the coronavirus. She is aware that she is at increased risk as well as her . She is practicing social distancing as well as adequate hand hygiene and overall remaining indoors outside of medical appointments at this time. She was initially optimistic regarding her new maintenance therapy with the Xeloda and Avastin but with the fatigue yesterday she started to have some concerns. However, today she is feeling more optimistic as her symptoms have lessened. She continues to have a pragmatic approach regarding her care. Due to the recent pandemic with the coronavirus she and her family had to cancel their cruise to [place] in November 2019 that she was looking forward to. Impression and Recommendations - Palliative Care Impression: This is a sedentary 69-year-old woman with stage IV colon cancer with peritoneal carcinomatosis and malignant ascites. Her last CT of her abdomen demonstrated stable disease. Her CEA has increased. She was initiated on maintenance Xeloda/Avastin starting on 08/25/2019 with noted increased weakness that has started to yessenia. She has had a functional decline and continues to work with physical therapy to maintain her strength. Palliative care to continue to provide support for pain and symptom management and anticipatory guidance. Recommendations/Counseling Done: 1.Fatigue with weakness. Likely side effect of new maintenance therapy with Xeloda and Avastin that was initiated on 08/25/2019. Reviewed common side effects regarding the therapy with the patient and daughter, Zina. Recommended that the patient consume a meal, such as cearal prior to taking her Xeloda instead of half of emily bread as a trial in symptom reduction with agreement. Discussed that she needs to work on maintaining her current physical strength and advised to use the exercise stand with pedals for 5 minutes on her arms and 5 minutes to her legs daily. Fall precautions. Continue to work with home physical therapy for strengthening and muscle maintenance. 2. Epidermal inclusion cyst. S/p keflex. S/p evaluation by surgeon and presently packing the site with improvement. No s/s of infection. F/u with surgeon as scheduled. 3. Peripheral neuropathy. Has baseline neuropathy 2/2 to diabetes that has been exacerbated by chemotherapy in the past. Monitor to worsening symptoms and adjust gabapentin accordingly for symptom management. 4. Constipation. Improved and patient able to self manage. Recommended addition of miralax at night to soften stools and senna use as needed for stimulation and titrate as needed. Encouraged to maintain oral hydration. 5. Pressure Ulcer right buttock, stage I. Improved. Advised to resume application of butt paste to site BID until resolved. Continue use of donut for pressure reduction when sitting in her recliner and reposition OOB in chair every 15 minutes when awake. 6. Depression. Patient's mood is presently at baseline and stable. Would be open to re-trying lexapro in the future but will hold off at this time and re- address in the future as needed. 7. Stage IV colorectal cancer. CT scans performed on 08/04/2019 demonstrated stable disease. No evidence of ascites on examination. Last CEA 167.5 on 08/24. Continue maintenance therapy as ordered and way benefits versus burdens based on patient's tolerance. Follow-up in the [facility] as scheduled on 09/14. Time Spent: Total time spent 60 minutes with greater than 50% of this spent in counseling and coordination of care with patient, daughter Zina and spouse Dominic; examination of patient; review of symptom management and anticipatory guidance. disclaimer: The chart note was formulated using voice recognition technology and unfortunately sound alike errors may occur.
== END 2019-08-28 13:01 | disposition home or self-care (01) ==
LOC: PC 13:00
PROVIDERS: ATTEND Nurse Practitioner Family
DX: Z51.5 Encounter for palliative care (principal); R53.83 Other fatigue; R53.1 Weakness; L72.0 Epidermal cyst; E11.40 Type 2 diabetes mellitus with diabetic neuropathy, unspecified; K59.00 Constipation, unspecified; L89.311 Pressure ulcer of right buttock, stage 1; F32.9 Major depressive disorder, single episode, unspecified; C18.8 Malignant neoplasm of overlapping sites of colon; C78.6 Secondary malignant neoplasm of retroperitoneum and peritoneum; R18.0 Malignant ascites; Z79.899 Other long term (current) drug therapy; Z79.84 Long term (current) use of oral hypoglycemic drugs; Z66 Do not resuscitate
CPT/HCPCS: 99350

== ENCOUNTER 2019-09-15 08:00 | Outpatient (CLI) | payer MEDICARE ==
[2019-09-15 13:12] LABS: CHOL/HDL RATIO 3.2 (<4.4); CHOLESTEROL 191 mg/dL; HDL CHOLESTEROL 59 mg/dL; LDL CHOLESTEROL,CALCULATED 112 mg/dL; LDL/HDL RATIO 1.9 (<4.4); VLDL CHOLESTEROL 20 mg/dL
[2019-09-15 13:13] LABS: CREATININE,URINE 229.9 mg/dL; MICROALBUM/CREATININE RATIO,UR 8.7 ug/mg (<30.0)
[2019-09-15 13:18] LABS: HB2 TOTAL 12.6 g/dL; HEMOGLOBIN A1C 0.71 g/dL; HEMOGLOBIN A1C % 7.3 % (4.6-6.2)
== END 2019-09-15 23:59 | disposition home or self-care (01) ==
LOC: LAB.R 08:00
PROVIDERS: ATTEND Internal Medicine
DX: E11.65 Type 2 diabetes mellitus with hyperglycemia (principal); E78.5 Hyperlipidemia, unspecified
CPT/HCPCS: 80061; 82043; 82570; 83036; 83721

== ENCOUNTER 2019-10-01 14:26 | Outpatient (CLI) | payer MEDICARE ==
--- NOTE | 2019-10-01 14:32 | CONSULTATION NOTE ---
Palliative Care Follow Up - Referral Referring Provider: Dr. Regino Pretty Time of Visit: [id number] Referral setting: Home Referral Reason: Stage IV Colon Cancer with peritoneal carcinomatosis/Neuropathy - Information Sources Records reviewed: Previous records reviewed History/Review of Systems obtained from: Patient, Family (daughter, Zina and , Dominic) Exam limitations: No limitations - History of Present Illness Update Brief HPI Update: This is a 69-year-old woman with stage IV colon cancer that is multifocal in the colon with peritoneal carcinomatosis and malignant ascites. She was diagnosed in January 2019. She was started on FOLFOX/Avastin chemotherapy in February 2019. Since discontinuation of oxaloplatin and she is no longer having any double vision. She was then initiated on a maintenance infusion of FFU and Avastin which was stopped in July 2019. She subsequently transition to ma intenance Xeloda and Avastin which was started 08/25/2019. Her last CEA was 129.4on 09/15/2019--down from 167.5 on 08/25/2019. She has had 2 cycles of Avastin since starting Xeloda. She is reporting in creased fatigue and that she feels weaker overall. She is sleeping approximately 12 to 14 hours nightly. She is also noticed that her appetite has significantly decreased. And this is a new development regarding her appetite has since this new regimen was started. She continues to take CBD oil which previously helped with her appetite stimulation when prior chemotherapy regimens. She reports that few do not interest her and she is not hungry. Her daughter, Zina has tried to initiate protein supplementation but the patient has felt that certain textures have been "goopy." This texture does not sit well with her regarding consumption. She does like milk shakes and will be happy to consume that on a routine daily basis. She presently reports that her last weight was 206 pounds that she obtained 3 days ago. She reports that her bowels are more regular and on the [place] scale reports her stool as a type IV. She denies any discomfort with defecation and denies diarrhea. She continues to work with home health physical therapy. She does not use her walker or Rollator within the home and prefers to ambulate by holding onto the angela. The majority the time when she stands up she feels like she is going to fall over with dizziness. She denies during these episodes of having headache, chest pain, or palpitations. She reports that this has been going on for "some time." These typically improves and go and then goes away when she starts walking. She denies any falls. She developed a cyst at the posterior aspect of her neck that had been present for appx 6 months that was treated with oral keflex and then was followed by general surgery at [facility] for debris removal with resolution of the site. She also reports the pressure ulcer to her right buttock is resolved and she denies discomfort. She has a history of diabetic peripheral neuropathy and is on gabapentin 600mg nightly. Her systems of neuropathy has increased since starting her new regimen of Xeloda and Avastin. She reports that her fingers and feet have peeled and she has new skin that is tender. Her distal extremities have increased tingling that is present throughout the day. She is having difficulty with fine motor skills given her neuropathy. She has not been able to check her blood glucose levels daily due to her sensitivity to the tips of her fingers and decreased fine motor function. She is checking every 3 days. Her blood glucose levels remain under 150 and she is on metformin for her diabetes mellitus. Her is apply cervae cream regularly to her feet and she is apply keto conazole cream three times a week to her right foot due to candidaisis that she reports is a long standing history that her PCP has treated with some improvement in the past but not resolution. She has not seen a binder cutter for this problem. She also typically sees the [employer] at [facility] for her toenails to be cut but due to the coronavirus things are presently closed due to the "stay safe and stay home" orders. 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 She cannot stand to have her toenails filed and only desires them to be cut. Patient has a past medical history of osteoarthritis, type 2 diabetes, colon cancer, GERD, kidney stones, peripheral neuropathy. Social History - Living Situation Living arrangement: At home Living Situation: With spouse/s.o., With family (daughter, Zina who is a [employer]) Support System: The patient lives at home with her , Dominic, they have been for 33 years. The patient's also has his own complex health challenges as well and wishes to assist the patient in any way that he can even sometimes to the detriment of his own health and wellbeing. The patient's stepdaughter, Zina was trained as a [employer], is typically living with her parents to assist in their care and her life is presently on hold in [place]. The patient is quite sedentary and has proclaimed herself a couch potato. Medications/Allergies - Medications Home Medications: Ambulatory Orders Medication Instructions Recorded Confirmed Glipizide [Glipizide Xl] 1 tab PO DAILY PRN 10/12/16 10/01/19 metFORMIN [Glucophage] 1,000 mg PO DAILY 10/12/16 10/01/19 Fluticasone [Flonase] 1 sprays TONJA DAILY PRN 04/07/19 10/01/19 Furosemide [Lasix] 20 mg PO DAILY PRN 04/07/19 10/01/19 Gabapentin [Neurontin] 600 mg PO HS 04/07/19 10/01/19 Ipratropium [Atrovent] 2 sprays IN BID PRN MDD up to 4 04/07/19 10/01/19 times daily Ondansetron [Ondansetron Odt] 8 mg PO Q8HR PRN 04/07/19 10/01/19 Spironolactone 25 mg PO DAILY PRN 04/07/19 10/01/19 Metoclopramide [Reglan] 5 mg PO TID PRN 04/21/19 10/01/19 Omeprazole 40 mg PO DAILY 04/21/19 10/01/19 Senna [Senokot] 2 tab PO ACHS PRN 05/13/19 10/01/19 polyethylene glycoL 3350 [Miralax] 17 gm PO DAILY PRN 05/13/19 10/01/19 Ibuprofen 600 mg PO Q8HR PRN 06/02/19 10/01/19 Ketoconazole 1 applic TP BID MDD 14 days to 08/05/19 10/01/19 right foot Capecitabine [Xeloda] 2,000 mg PO BID MDD x14 days then 08/28/19 10/01/19 1 week off Gabapentin 300 mg PO DAILY MDD in AM 10/01/19 10/01/19 Mirtazapine 7.5 mg PO QPM 10/01/19 10/01/19 - Allergies Allergies/Adverse Reactions: Allergies Allergy/AdvReac Type Severity Reaction Status Date / Time No Known Drug Allergies Allergy Verified 09/15/19 12:51 Review of Systems - Constitutional Constitutional: reports: Fatigue, Poor appetite, Weight loss (weight 206lb presently). denies: Fever, Chills - Eyes Eyes: reports: Corrective lenses. denies: Blurred vision - Ears, Nose & Throat Ears, Nose & Throat: denies: Hearing loss, Dry mouth - Cardiovascular Cardiovascular: denies: Palpitations, Chest pain, Edema - Respiratory Respiratory: denies: Cough - Gastrointestinal Gastrointestinal: reports: Poor appetite. denies: Abdominal pain, Constipation, Diarrhea, Vomiting - Genitourinary Genitourinary: denies: Dysuria, Frequency - Musculoskeletal Musculoskeletal: reports: Muscle weakness, Assistive devices - Integumentary Integumentary: reports: Other (Rsolved cyst to posterior neck and pressure ulcer to right buttock) - Neurological Neurological: reports: Dizziness, Numbness, Other (peripheral neuropathy) - Psychiatric Psychiatric: reports: Depression - Endocrine Endocrine: reports: Diabetes type 2 - Hematologic/Lymphatic Hematologic/Lymphatic: denies: Recurrent infections - All Other Systems All Other Systems: reports: Reviewed and negative Physical Exam - Vital Signs Temperature: 36.9 C Pulse Rate: 80 O2 Saturation: 97 (on RA at rest) Blood Pressure: 106/63 (right wrist cuff sitting) - Physical Exam General Appearance: positive: No acute distress, Other (OOB in recliner with her slippers on) Eyes Bilateral: positive: Other (+corrective lenses) ENT: positive: No signs of dehydration Neck: positive: Trachea midline Abdomen: positive: Non-tender, Soft, Obese, Other (palpable mass over left upper abdomen due to carcinoatosis). negative: Guarding Skin: positive: Other (martha color to medial aspect of inner right foot and along sole for foot ? candidasis; several elongated toenails; hyperpigmentation to posterior aspect of neck appx 2cm x2cm from site of cyst) Extremities: positive: No pedal edema Neurologic/Psychiatric: positive: Oriented x3, Sensory loss (distal aspect of fingers and to feet), Depressed mood/affect, Other (asks and answers questions appropriately) Comments/Other: standing BP 130/89 Palliative Care - POLST Patient has POLST: Yes POLST Status: DNR, Selective Treatment Pain: Pain worsening (Neuropathy pain to bilateral hands and feet that is lasting throughout the day.) Tiredness/Fatigue: Moderate (4-6) (Cumulative effect) Nausea: None Anorexia: Moderate (4-6), Weight loss Dyspnea: None Depression: Mild (1-3) Anxiety: None Feelings of wellbeing/Perceived Quality of Life: Fair Sleep: Sleeps well Constipation: No Performance Status: Patient is ambulatory but is steadier with the use of a Rollator which she has not allowed in the home. Her family provides meals by doing the meal prep. She has had a loss of appetite with noted weight loss with her current regiment of Xeloda and Avastin. She continues to have fatigue. She continues to work with physical therapy. No recent falls. Remains continent of bowel and bladder. PPS 50% - Palliative Care Discussion: The patient was initially optimistic regarding her new therapy regimen with Xeloda and Avastin, but now reports that she is experiencing more symtpom burden with this combination then on the past regimens. She has had weight loss with lack of appetite, increased neuropathy with weakness and fatigued. The patient verbalized that she is Understanding that her condition is not curable and the present treatment is palliative in intent. She was advised to weigh the bene fits versus burdens regarding how she is presently feeling with the present regimen If she wishes to continue on this journey. She has not explored these feelings overall and will do so moving forward. However, at the present time she wishes to have an extension on her life and presently that out ways potential side effects of the present regiment. She wishes to be as comfortable as she can while increasing her longevity as much as possible and is "not ready to stop." She is aware that she may discontinue treatment for her colon cancer at any time if she desires to do so. At the present, she is most bothered by her lack of appetite, dizziness when standing and peripheral neuropathy. The patient has a past is a 1 to relay all her symptoms and when solutions are provided she does not offer an follow through with recommendations. The patient's daughter and continue to provide support but can become easily frustrated given the patient's lack of motivation to do things independently on her own to maintain her strength and function. Results - Lab Results Lab results reviewed: Yes Lab and Imaging Results: 09/15/2019: CEA 129.4, sodium 131, potassium 3.5, BUN 12, creatinine 0.9, estimated GFR 62, AST 38, ALT 12, alk phos 101, hemoglobin A1c 7.3%. Impression and Recommendations - Palliative Care Impression: This is a sedentary 69-year-old woman with stage IV colon cancer with peritoneal carcinomatosis and malignant ascites. Her last CT of her abdomen in July 2019 demonstrated stable disease and her CEA has decreased. She is presently on maintenance Xeloda and Avastin started on 08/25/2019. She has had 2 cycles of Avastin completed. She has had an increase in symptom burden since initiation of this therapy combination with fatigue, anorexia, weight loss, increased peripheral neuropathy. Palliative care to continue to provide support for pain and symptom management, exploration of goals of care, and anticipatory guidance. Recommendations/Counseling Done: 1. Dizziness. Likely multifactorial. Peripheral neuropathy, venous insufficiency, sedentary lifestyle and deconditioning. Encourage patient to do ankle pumps and fist pumps prior to standing to increase circulation. Continue oral hydration. Recommended use of calf compression socks to wear in the a.m. before getting out of bed and remove in the p.m. to help with her noted dizziness when standing. No evidence of orthostatic hypotension on examination today as the patient's blood pressure increased upon standing and did not decrease. Continue to monitor. Fall precautions. Strongly encouraged her to use her Rollator within the home as she feels steadier with the use of her Rollator. 2. Anorexia and weight loss secondary to present therapy for metastatic colon cancer. Encouraged routine milkshakes. Also recommended Glucerna supplementation for weight and protein supplementation. Continue to monitor weights. Start mirtazapine 7.5 mg in the evening for depression and appetite stimulation. Reviewed purpose dose and side effects with patient and family. 3. Peripheral neuropathy. Has had baseline neuropathy due to her diabetes that has been exacerbated by chemotherapy. Increase gabapentin to 300 mg in the a.m. and continue 600 mg in the evening. Continue to monitor for dose response and adjust regimen as needed. 4. Diabetes mellitus type 2 last hemoglobin A1c 7.3% on 09/15/2019. Continue oral antihyperglycemic's at the present time. Has the patient is having difficulty obtaining her blood glucose checks with her glucometer recommend decreasing to once a week given her fasting blood glucose levels are typically less than 150. Continue to monitor. Goal hemoglobin A1c is 7 to 8% given the patient's age and comorbidities and wish to avoid hypoglycemic events. 5. Depression. The patient has had a history of depression appropriately given her health circumstances. She previously was tried on Lexapro but discontinued after a few days. Will initiate mirtazapine 7.5 mg in the evening to help with depressive symptoms as well as for appetite stimulation. Advised it may take 2 to 3 weeks to see an adequate response. 6. Metastatic colon cancer. CT scans performed on 08/04/2019 demonstrated stable disease. No evidence of ascites on examination. Last CEA 129.41 09/15/2019 continue therapy as ordered by oncology and patient to continue to weigh benefits versus burdens based on her tolerance and wish to continue treatment. She is aware that her treatment is for palliative intent and that she may discontinue at any time if the burdens of the treatment become too much for her regarding cumulative effect of the burdens. Follow-up in the [facility] center as scheduled on 10/06/2019. Time Spent: Total time spent 40 minutes with greater than 50% of this spent in counseling and coordination of care with patient, daughter and spouse; escalation vs de- escalation of care; explored goals of care; review of pain and symptom management and anticipatory guidance. Disclaimer: The chart note was formulated using voice recognition technology and unfortunately sound alike errors may occur.
== END 2019-10-01 14:27 | disposition home or self-care (01) ==
LOC: PC 14:26
PROVIDERS: ATTEND Nurse Practitioner Family
DX: Z51.5 Encounter for palliative care (principal); R42 Dizziness and giddiness; R63.0 Anorexia; R63.4 Abnormal weight loss; T45.1X5A Adverse effect of antineoplastic and immunosuppressive drugs, initial encounter; R53.0 Neoplastic (malignant) related fatigue; E11.42 Type 2 diabetes mellitus with diabetic polyneuropathy; F32.9 Major depressive disorder, single episode, unspecified; L60.8 Other nail disorders; C18.8 Malignant neoplasm of overlapping sites of colon; C78.6 Secondary malignant neoplasm of retroperitoneum and peritoneum; R18.0 Malignant ascites; Z79.84 Long term (current) use of oral hypoglycemic drugs; Z79.899 Other long term (current) drug therapy; Z66 Do not resuscitate
CPT/HCPCS: 99349

== ENCOUNTER 2019-10-13 11:06 | Outpatient (CLI) | payer MEDICARE | END 2019-10-13 11:07 | disposition EMS.NT | LOC: EMS 11:06 | PROVIDERS: ATTEND Surgery | DX: Z03.89 Encounter for observation for other suspected diseases and conditions ruled out (principal) ==

== ENCOUNTER 2019-10-15 16:23 | Outpatient (CLI) | payer MEDICARE ==
--- NOTE | 2019-10-15 16:35 | CONSULTATION NOTE ---
Palliative Care Follow Up - Referral Referring Provider: Dr. Regino Pretty Time of Visit: [id number] Referral setting: Home Referral Reason: Functional Decline/Fatigue/Weight loss/Colon Cancer - Information Sources Records reviewed: Previous records reviewed History/Review of Systems obtained from: Patient, Family (, Dominic and daughter, Zina) Exam limitations: No limitations - History of Present Illness Update Brief HPI Update: This is a 69-year-old woman with stage IV colon cancer that is multifocal in the colon with peritoneal carcinomatosis and malignant ascites. She was diagnosed in January 2019. She was started on FOLFOX/Avastin chemotherapy in February 2019. Since discontinuation of oxaloplatin and she is no longer having any double vision. She was then initiated on a maintenance infusion of FFU and Avastin which was stopped in July 2019. She subsequently transition to maintenance Xeloda and Avastin which was started 08/25/2019. Her last CEA was 75.4 on 10/06/2019--down from 167.5 on 08/25/2019. She previously required large-volume paracentesis but this not has not been required since March 2019. She has as needed spironolactone and furosemide for malignant ascites, which she has not needed. Since starting Avastain and Xeloda she has had increased symptom burden with dec rease appetite, increased fatigue, weight loss, mucositis, worsening neuropathy and fatigue. Due to these symptoms her Xeloda dose was reduced on 10/06/2019. In late September she was initated on remeron 7.5mg nightly for depression and appetite stimulation. She had noted an improvement last week in her energy level and appetite for a handful of days before starting on 10/11/2019 she had increased fatigue, decreased oral intake and difficulty ambulating due to weakness. She has not taken her remeron for the last 4 days. Today she denies fever, chills, cough, RODRIGUEZ, abdominal pain, dysuria. Over the weekend she had concentrated urine and she has been working on her overall hydration intake. She is sleeping the majority of the day per patient and family. EMS was contacted on Sunday for evaluation in the emergency department and for possible hydration as the patient was unable to ambulate to get into the car. However, when EMS arrived to the home she was able to rise to her feet and ambulate. She consumed a half a cup of eggs and diaz after the EMSs arrival and later that evening had a can of leong soup. That was the last time she had any significant food. Due to her overall functional decline the patient reached out to the [facility] yesterday and has elected not to proceed with chemotherapy and has stopped her Xeloda. Her last dose of Xeloda was 10/14/2019. She had none of her medications yesterday. The patient has had a 12lb unintentional weight loss since August 2019. When she was last weighed on October 05 she was 202lbs. She has not had any evidence of ascites or LE edema. The end of last week the patient reported pain to the arch of her right foot. Then over the weekend her noticed what appeared to be a "blood blister" to the bottom of her foot. It is tender when she ambulates. They have not tried any interventions. There is no spreading redness. The patient denies trauma to the right foot however, she uses the bar at the bottom of her bed with her foot to push and propel herself up. The patient reports it is possible that she did cause trauma to the bottom part of her foot. Patient has a past medical history of osteoarthritis, type 2 diabetes, colon ca ncer, GERD, kidney stones, peripheral neuropathy. Social History - Living Situation Living arrangement: At home Living Situation: With spouse/s.o. (, Dominic and step-daughter, Zina) Support System: The patient lives at home with her Dominic, they have been for 33 years. Her also has his own complex health challenges as well and wishes to assist the patient in any way that he can. The patient's stepdaughter, Zina, who was trained as a MANAGEMENT ADVISOR relocated to [facility] at the present time to assist with the care of her parents. Both Zina and Dominic are attentive caregivers. The patient herself continues to enjoy watching [employer] TV on television or on her iPad. She is quite sedentary and has proclaimed herself a couch potato. Medications/Allergies - Medications Home Medications: Ambulatory Orders Medication Instructions Recorded Confirmed Glipizide [Glipizide Xl] 1 tab PO DAILY PRN 10/12/16 10/06/19 metFORMIN [Glucophage] 1,000 mg PO DAILY 10/12/16 10/06/19 Fluticasone [Flonase] 1 sprays TONJA DAILY PRN 04/07/19 10/06/19 Furosemide [Lasix] 20 mg PO DAILY PRN 04/07/19 10/06/19 Gabapentin [Neurontin] 600 mg PO HS 04/07/19 10/06/19 Ipratropium [Atrovent] 2 sprays IN BID PRN MDD up to 4 04/07/19 10/06/19 times daily Ondansetron [Ondansetron Odt] 8 mg PO Q8HR PRN 04/07/19 10/06/19 Spironolactone 25 mg PO DAILY PRN 04/07/19 10/06/19 Metoclopramide [Reglan] 5 mg PO TID PRN 04/21/19 10/06/19 Omeprazole 40 mg PO DAILY 04/21/19 10/06/19 Senna [Senokot] 2 tab PO ACHS PRN 05/13/19 10/06/19 polyethylene glycoL 3350 [Miralax] 17 gm PO DAILY PRN 05/13/19 10/06/19 Ibuprofen 600 mg PO Q8HR PRN 06/02/19 10/06/19 Ketoconazole 1 applic TP BID MDD 14 days to 08/05/19 10/06/19 right foot Gabapentin 300 mg PO DAILY MDD in AM 10/01/19 10/06/19 Dexamethasone 2 mg PO DAILY MDD for 7 days 10/15/19 10/15/19 - Allergies Allergies/Adverse Reactions: Allergies Allergy/AdvReac Type Severity Reaction Status Date / Time No Known Drug Allergies Allergy Verified 10/06/19 09:30 Review of Systems - Constitutional Constitutional: reports: Fatigue, Weight loss (12lb weight loss from August 2019 to September 2019; last weight 202lb on 10/06/2019). denies: Fever, Chills - Eyes Eyes: reports: Corrective lenses - Ears, Nose & Throat Ears, Nose & Throat: denies: Mouth lesions - Cardiovascular Cardiovascular: denies: Palpitations, Chest pain - Respiratory Respiratory: denies: Cough, SOB with exertion - Gastrointestinal Gastrointestinal: reports: Constipation (intermittent, relieved with miralax), Poor appetite. denies: Abdominal pain, Diarrhea, Nausea, Vomiting - Genitourinary Genitourinary: denies: Dysuria, Urgency, Hematuria, Incontinence - Musculoskeletal Musculoskeletal: reports: Muscle weakness, Assistive devices. denies: Joint pain - Integumentary Integumentary: reports: Lesions (bottom of right foot), Dryness - Neurological Neurological: reports: General weakness, Other (peripheral neuropathy). denies: Dizziness - Psychiatric Psychiatric: reports: Depression - Endocrine Endocrine: reports: Diabetes type 2 - Hematologic/Lymphatic Hematologic/Lymphatic: denies: Recurrent infections - All Other Systems All Other Systems: reports: Reviewed and negative Physical Exam - Vital Signs Temperature: 36.4 C Pulse Rate: 69 O2 Saturation: 97 (on RA at rest) Blood Pressure: 96/58 (left wrist cuff) - Physical Exam General Appearance: positive: No acute distress, Alert, Other (resting in bed, overweight) Eyes Bilateral: positive: Normal inspection ENT: positive: Dry mucous membranes (slightly dry). negative: Oral lesions Neck: positive: Trachea midline Cardiovascular: positive: Regular rate & rhythm, No murmur Respiratory: positive: No respiratory distress, Breath sounds nml. negative: Rales Abdomen: positive: Non-tender, Soft, Nml bowel sounds, Obese, Other (palpable mass over left upper abdomen due to carcinoatosis) Skin: positive: Dryness (dry, flaky skin to plantar aspect of feet.), Other (martha color to medial aspect of inner right foot and along sole for foot ? candidasis; induration that is martha in color to the planatar aspect of right foot along arch appx 2.5cm in size, tender to deep palpation without surrounding erythema with appearance of possible hemotoma) Extremities: positive: No pedal edema, Other (ambulates with walker--appears overall steady--ambulating with right foot slightly inverted to avoid walking her her arch due to discomfort) Neurologic/Psychiatric: positive: Oriented x3, Mood/affect nml, Other (appears fatigued) Palliative Care - POLST Patient has POLST: Yes POLST Status: DNR, Selective Treatment Pain: Comment (peripheral neuropathy managed with gabapentin; pain to arch on plantar aspect of right foot with ambulation) Tiredness/Fatigue: Moderate (4-6) Drowsiness/Sedation: Severe (7-10) Nausea: None Anorexia: Moderate (4-6), Weight loss (12lb weight loss) Dyspnea: None Depression: Mild (1-3) Anxiety: None Feelings of wellbeing/Perceived Quality of Life: Poor Sleep: Sleeps well Constipation: Managed, Intermittent constipation Performance Status: Requiring a walker for ambulation with one-person contact-guard due to generalized weakness. No recent falls. Unable to get up out of bed independently and requires assistance. She is unable to reposition independently in bed. Due to decreased strength she is having difficulty feeding herself and her cup for water consumption had to be changed as it was too heavy for her to maintain her strength. She remains continent of bowel and bladder. PPS 40% - Palliative Care Discussion: In less than a week the patient has had a significant functional change that she does not find tolerable. Since the change in her therapy regimen with Xeloda and Avastin for her colon cancer maintance therapy she has had an increase in symptom burden. She has come to a tipping point that the burdens of the therapy for potential increase in longevity is not worth continuation given her present quality of life. She had hoped with the reduction of the is allotted dose that she would have improvement of her symptoms. She had her last dose of the Xeloda Sunday evening. Presently the patient has hopes that she will get close to her baseline status and is aware that this may not occur. She does not wish to go to the hospital for her present symptoms. After review of goals with the patient and her family today she wishes to focus on quality of life and comfort. She wishes to enjoy the time that she has with her family and have improvement of her appetite to enjoy meals. She also does not wish to rely on her family and hopes to have strength so that she may be able to participate in her overall care. As the patient has discontinued chemotherapy and wishes to focus on quality of life explored transition to hospice services versus remaining on palliative care services and after review has elected to proceed with hospice services for management. Impression and Recommendations - Palliative Care Impression: This is a sedentary 69-year-old woman with stage IV colon cancer with peritoneal carcinomatosis and history of malignant ascites. Due to her increasing symptom burden and poor quality of life she has opted to discontinue her chemotherapy. She has had a weight loss of 12lbs in appx 2 months of unintentional weight loss with a decrease in appetite. She continues to experience peripheral neuropathy. Palliative care will refer to hospice services as the patient wishes to focus on comfort and quality of life within her home. Recommendations/Counseling Done: 1. Functional decline. Multifactorial and likely related to increased burdens of chemotherapy and disease progression of her metastatic colon cancer. She has discontinued chemotherapy and wishes to proceed with hospice services with a new focus on quality of life and comfort measures. She presently finds her quality of life poor and is optimistic to have this improve. 2. Anorexia and unintentional weight loss with protein calorie malnutrition. Discontinue mirtazapine as she has not had the medication for the last 4 evenings and she has not noted a benefit on vs off the medication. Due to general fatigue, lack of appetite and weight loss will trial dexamethasone 2mg daily for 7 days. Reviewed with patient and family regarding side effects of dexamethasone including increase in blood glucose levels given the patient's history of diabetes and to monitor blood gluocse levels more closely during this time with understanding tera. Also reviewed, that this is a short term treatment and would not be termite control service representative given risks of side effects with understanding verbalized and patient wishes to proceed with a trial. 3.Metastatic colon cancer. CT scans performed on 08/04/2019 demonstrated stable disease. No evidence of ascites on examination. Last CEA 129.41 09/15/2019 co ntinue therapy as ordered by oncology and patient to continue to weigh benefits versus burdens based on her tolerance and wish to continue treatment. She is aware that her treatment is for palliative intent and that she may discontinue at any time if the burdens of the treatment become too much for her regarding cumulative effect of the burdens. Follow-up in the [facility] center as scheduled on 4. Peripheral neuropathy. Has baseline neuropathy due to her diabetes that has been exacerbated by chemotherapy. Continue gabapentin 300 mg in the a.m. and continue 600 mg in the evening. Continue to monitor for dose response and adjust regimen as needed. 5. Diabetes mellitus type 2 last hemoglobin A1c 7.3% on 09/15/2019. Continue oral antihyperglycemic's at the present time. Monitor more closely during dexamethasone administration. Continue to monitor. Goal hemoglobin A1c is 7 to 8% given the patient's age and comorbidities and wish to avoid hypoglycemic events. 6. Hematoma to plantar aspect of right foot arch. No evidence of cellulitis. Recommended avoidance of bed rail to push off to get out of bed. Will benefit from hospital bed and recommendation will be made to hospice for obtainment. Recommended use of warm compress to site three times daily for 10-15mintues until resolved. Reviewed s/s of infection such as spreading erythema, warmth to touch, etc and to contact provider regarding these changes. 7. Depression. The patient has had a history of depression appropriately given her health circumstances. She previously was tried on Lexapro but she self discontinued after a few days. As she has not noticed a benefit on vs without mirtazapine and she has been without for several days will discontinue at the present time. Monitor, and re-access regarding retrial in the future. 8. Advanced care planning. Patient has had an increase in symptom burden and wishes to focus on comfort and transition to hospice services for additional support within the home. She has a POLST that is DNAR with selective treatment that will need to be further reviewed in the future as goals evolve and/or change. Appropriate referral to hospice services made at the request of the patient and her family. Time Spent: Total time spent 75 minutes with greater than 50% of this spent in counseling and coordination of care with patient and family; escalation vs de-escalation of care; palliative and hospice philosophy; review of pain and symptom management and anticipatory guidance. Disclaimer: The chart note was formulated using voice recognition technology and unfortunately sound alike errors may occur.
== END 2019-10-15 16:24 | disposition home or self-care (01) ==
LOC: PC 16:23
PROVIDERS: ATTEND Nurse Practitioner Family
DX: Z51.5 Encounter for palliative care (principal); R53.1 Weakness; R53.83 Other fatigue; E46 Unspecified protein-calorie malnutrition; R63.0 Anorexia; R63.4 Abnormal weight loss; E11.42 Type 2 diabetes mellitus with diabetic polyneuropathy; K59.00 Constipation, unspecified; F32.9 Major depressive disorder, single episode, unspecified; S90.31XA Contusion of right foot, initial encounter; C18.8 Malignant neoplasm of overlapping sites of colon; C78.6 Secondary malignant neoplasm of retroperitoneum and peritoneum; R18.0 Malignant ascites; Z79.899 Other long term (current) drug therapy; Z92.21 Personal history of antineoplastic chemotherapy; Z66 Do not resuscitate
CPT/HCPCS: 99350

== ENCOUNTER 2019-11-26 22:30 | Outpatient (CLI) | payer MEDICARE | END 2019-11-26 22:31 | disposition EMS.NT | LOC: EMS 22:30 | PROVIDERS: ATTEND Surgery | DX: Z03.89 Encounter for observation for other suspected diseases and conditions ruled out (principal) ==